=== PATIENT | male | born 1980 | race African-American/Black ===

== ENCOUNTER 2017-06-29 02:31 | Emergency (ER) | payer SELFPAY ==
[~2017-06-29] VITALS: Ht 175.3 cm; Wt 105.0 kg
[2017-06-29 02:36] VITALS: BP 135/69
[2017-06-29] MEDS ORDERED: BUPIVACAINE HCL 0.5% 30 ML VIAL SC ONE (03:15)
== END 2017-06-29 03:55 | disposition home or self-care (01) ==
LOC: EDBD 02:31 → M ED 02:31
DX: N48.89 Other specified disorders of penis (principal)